=== PATIENT | male | born 1990 | race African-American/Black ===

== ENCOUNTER 2018-01-24 00:50 | Emergency (ER) | payer SELFPAY ==
[~2018-01-24] VITALS: Ht 193 cm; Wt 89.1 kg
[2018-01-24] MEDS ORDERED: LIDOCAINE HCL 2% 5 ML JELLY TP ONE (01:30)
[2018-01-24] MEDS ORDERED: LIDOCAINE HCL 1% 10 ML VIAL INJ ONE (01:30)
[2018-01-24] MEDS ORDERED: DEXTROSE 50%-WATER 25 GM/50 ML SYRINGE IVP ONE (01:30)
[2018-01-24 03:27] VITALS: BP 128/79
== END 2018-01-24 03:34 | disposition home or self-care (01) ==
LOC: EMS 00:51
DX: N47.2 Paraphimosis (principal)
CPT/HCPCS: 54450; 81002; 99284; J3490